=== PATIENT | female | born 1960 | race Caucasian/White ===

== ENCOUNTER 2018-08-25 22:33 | Emergency (ER) | payer OTHER ==
[2018-08-25] MEDS ORDERED: DUONEB 0.5-3 MG/3 ml Neb IH ONE ×2 (23:08→23:12)
--- NOTE | 2018-08-25 23:12 | ERPHSYRPT ---
- History of Present Illness Time Seen by Provider: 08/25/18 23:04 Source: patient Exam Limitations: no limitations Patient Subjective Stated Complaint: pt states she has been feeling short of breath all day and has felt like she cant take a deep breath Triage Nursing Assessment: pt alert and oriented, answers questions approp. pt ambualtoryw ith steady gait noted. respirations nonlabored with lungs cta. pt occasionally taking deep breath and states she doesnt feel like she is getting a deep breath. skin pink warm and slightly moist. heart rate 72 sinus rhythm on monitor Physician History: 57-year-old white female arrives with complaint of shortness of breath symptoms since 3:00 this afternoon she states she feels like she cannot get a deep breath she denies any chest pain no nausea no vomiting no other complaints he has not had any fevers. Past medical history includes arrhythmia, high blood pressure, myocardial infarction, gallbladder disease, bacterial meningitis. Past surgical history includes cardiac catheterization and cholecystectomy, social history is negative. Timing/Duration: today (3:00 today) Activities at Onset: none Possible Cause: no prior episodes Associated Symptoms: constant, No intermittent, No anxiety, No cough, No chest pain/discomfort, No edema, No fever, No insomnia, No loss of appetite, No lightheadedness, No wheezing, No weakness, No ankle swelling, No chills, No hemoptysis, No calf pain, No dizziness, No heaviness, No heart racing, No lightheadedness, No leg swelling, No muscle spasms feet, No muscle spasms hands , No painful breathing, No productive cough, No sweating, No tightness, No tingling face, No tingling hands International travel in last 2 weeks: No Allergies/Adverse Reactions: No Known Drug Allergies Allergy (Unverified 03/19/14 14:52) Home Medications: Lisinopril [Zestril] 20 mg PO HS 11/21/13 [History] Rivaroxaban [Xarelto] 20 mg PO DAILY 11/21/13 [History] Hx Tetanus, Diphtheria Vaccination/Date Given: Yes Hx Influenza Vaccination/Date Given: No Hx Pneumococcal Vaccination/Date Given: No Immunizations Up to Date: Yes - Review of Systems Constitutional: No Fever, No Chills Eyes: No Symptoms Ears, Nose, & Throat: No Symptoms Respiratory: Dyspnea, No Cough, No Wheezing Cardiac: No Chest Pain, No Edema, No Syncope Abdominal/Gastrointestinal: No Abdominal Pain, No Nausea, No Vomiting, No Diarrhea Genitourinary Symptoms: No Dysuria Musculoskeletal: No Back Pain, No Neck Pain Skin: No Rash Neurological: No Dizziness, No Focal Weakness, No Sensory Changes Psychological: No Symptoms Endocrine: No Symptoms All Other Systems: Reviewed and Negative - Past Medical History Pertinent Past Medical History: Yes Neurological History: No Pertinent History ENT History: No Pertinent History Cardiac History: Arrhythmia, Hypertension, Myocardial Infarction ([place]) Respiratory History: No Pertinent History Endocrine Medical History: No Pertinent History Musculoskeletal History: No Pertinent History GI Medical History: Gallbladder Disease History: No Pertinent History Psycho-Social History: No Pertinent History Female Reproductive Disorders: No Pertinent History Other Medical History: MENINGITIS-BACTERIAL - Past Surgical History Past Surgical History: Yes Cardiac: Cardiac Catheterization Gastrointestinal: Cholecystectomy Genitourinary: No Pertinent History Musculoskeletal: No Pertinent History Female Surgical History: No Pertinent History - Social History Smoking Status: Current every day smoker Exposure to second hand smoke: No Drug Use: none Patient Lives Alone: No Significant Family History: no pertinent family hx - Nursing Vital Signs Nursing Vital Signs: Initial Vital Signs Temperature 98.1 F 08/25/18 22:34 Pulse Rate 65 08/25/18 22:34 Respiratory Rate 18 08/25/18 22:34 Blood Pressure 203/118 08/25/18 22:34 O2 Sat by Pulse Oximetry 99 08/25/18 22:34 Pain Scale Pain Intensity 0 - Physical Exam General Appearance: no apparent distress, alert Eye Exam: PERRL/EOMI Neck Exam: normal inspection, supple Cardiovascular/Chest Exam: normal heart sounds, regular rate/rhythm Abdominal/Gastrointestinal Exam: soft, No tenderness, No distention, No mass Extremity Exam: non-tender, normal range of motion, normal inspection, no calf tenderness, no pedal edema Peripheral Pulses Exam: dorsalis-pedis (R): 2+, dorsalis-pedis (L): 2+ Neurologic Exam: alert, oriented x 3, cooperative, fitness centre manager II-XII nml as tested, sensation nml, No motor deficits Skin Exam: normal color, warm, No dry SpO2 Interpretation: normal (99%) SpO2: 99 - Course Nursing assessment & vital signs reviewed: Yes EKG Interpreted by Me: RATE (61 bpm), Sinus Rhythm, NORMAL AXIS, Other (EKG and and 60 normal axis, no acute ST or T wave changes) Ordered Tests: Active Orders 24 hr Category Date Time Status Cigar Sorter STAT Care 08/25/18 23:08 Active EKG-ER Only STAT Care 08/25/18 23:08 Active IV Insertion STAT Care 08/25/18 23:08 Active Pulse Oximetry (ED) STAT Care 08/25/18 23:08 Active CHEST 1 VIEW (PORTABLE) Stat Exams 08/25/18 23:08 Taken CBC W DIFF Stat Lab 08/25/18 23:13 Completed CMP Stat Lab 08/25/18 23:13 Completed D-DIMER QUANTITATION Stat Lab 08/25/18 23:13 Completed NT PRO BNP Stat Lab 08/25/18 23:13 Completed PROTIME WITH INR Stat Lab 08/25/18 23:13 Completed PTT Stat Lab 08/25/18 23:13 Completed TROPONIN Q3H Lab 08/25/18 23:13 Completed TROPONIN Q3H Lab 08/26/18 02:15 Ordered TROPONIN Q3H Lab 08/26/18 05:15 Ordered TROPONIN Q3H Lab 08/26/18 08:15 Ordered TROPONIN Q3H Lab 08/26/18 11:15 Ordered UA W/RFX UR CULTURE Stat Lab 08/25/18 23:42 Completed Urine Triage Profile Stat Lab 08/25/18 23:42 Completed VENOUS BLOOD GAS Stat Lab 08/25/18 23:08 Completed Peak Expiratory Flow Rate ONCE RT 08/25/18 23:18 Active Respiratory Therapy Assessment DAILY RT 08/25/18 23:19 Active Medication Summary Discontinued Medications Generic Name Dose Route Start Last Admin Trade Name Freq PRN Reason Stop Dose Admin Albuterol/Ipratropium 3 ml 08/25/18 23:08 08/25/18 23:13 Duoneb 0.5-3 Mg/3 Ml Neb IH 08/25/18 23:09 3 ml STAT ONE Administration Albuterol/Ipratropium Confirm 08/25/18 23:12 Duoneb 0.5-3 Mg/3 Ml Neb Administered 08/25/18 23:13 Dose 3 ml IH .STK-MED ONE Lab/Rad Data: Laboratory Result Diagrams 08/25/18 23:13 08/25/18 23:13 Laboratory Results 08/25/18 08/25/18 08/25/18 Range/Units 23:42 23:42 23:13 WBC (4.0-10.5) K/mm3 RBC (4.1-5.4) M/mm3 Hgb (12.0-16.0) gm/dl Hct (35-47) % MCV (78-100) fl MCH (26-32) pg MCHC (32-36) g/dl RDW (11.5-14.0) % Plt Count (150-450) K/mm3 MPV (6-9.5) fl Gran % (36.0-66.0) % Eos # (Auto) (0-0.5) Absolute Lymphs (auto) (1.0-4.6) Absolute Monos (auto) (0.0-1.3) Lymphocytes % (24.0-44.0) % Monocytes % (0.0-12.0) % Eosinophils % (0.00-5.0) % Basophils % (0.0-0.4) % Absolute Granulocytes (1.4-6.9) Basophils # (0-0.4) PT (9.95-12.35) SECONDS INR (0.8-3.0) APTT (25.3-37.0) SECONDS D-Dimer (215-500) ng/mL pO2/FiO2 Ratio % VBG pH (7.32-7.42) VBG pCO2 at Pat Temp (42-55) mm/Hg VBG pO2 at Pat Temp (25-40) mm/Hg VBG HCO3 (22-28) meq/L VBG O2 Sat (Moni) (95-100) VBG Base Excess (-2.0-2.0) VBG Hemoglobin VBG Carboxyhemoglobin (0.0-6.9) % T HGB POC Potassium (3.5-5.1) Sodium (137-145) mmol/L Potassium (3.5-5.1) mmol/L Chloride (98-107) mmol/L Carbon Dioxide (22-30) mmol/L Anion Gap (5-15) MEQ/L BUN (7-17) mg/dL Creatinine (0.52-1.04) mg/dL Estimated GFR ML/MIN Glucose (74-106) mg/dL Calcium (8.4-10.2) mg/dL Total Bilirubin (0.2-1.3) mg/dL AST (14-36) U/L ALT (0-35) U/L Alkaline Phosphatase (38-126) U/L Troponin I < 0.012 (0.000-0.034) ng/mL NT-Pro-B Natriuret Pep (0-900) pg/mL Serum Total Protein (6.3-8.2) g/dL Albumin (3.5-5.0) g/dL Urine Color STRAW (YELLOW) Urine Appearance CLEAR (CLEAR) Urine pH 7.0 (5-6) Ur Specific [place] 1.002 (1.005-1.025) Urine Protein NEGATIVE (Negative) Urine Ketones NEGATIVE (NEGATIVE) Urine Blood SMALL (0-5) Minh/ul Urine Nitrite NEGATIVE (NEGATIVE) Urine Bilirubin NEGATIVE (NEGATIVE) Urine Urobilinogen NEGATIVE (0-1) mg/dL Ur Leukocyte Esterase NEGATIVE (NEGATIVE) Urine WBC (Auto) NONE SEEN (0-5) /HPF Urine RBC (Auto) NONE (0-2) /HPF U Epithel Cells (Auto) NONE (FEW) /HPF Urine Bacteria (Auto) NONE SEEN (NEGATIVE) /HPF Urine Culture Reflexed NO (NO) Urine Glucose NEGATIVE (NEGATIVE) mg/dL Urine Opiates Level NEGATIVE (NEGATIVE) Ur Methadone NEGATIVE (NEGATIVE) Urine Barbiturates NEGATIVE (NEGATIVE) Ur Phencyclidine (PCP) NEGATIVE (NEGATIVE) Urine Amphetamine NEGATIVE (NEGATIVE) U Benzodiazepine Level NEGATIVE (NEGATIVE) Urine Cocaine NEGATIVE (NEGATIVE) Urine Marijuana (THC) POSITIVE (NEGATIVE) 08/25/18 08/25/18 08/25/18 Range/Units 23:13 23:13 23:13 WBC 7.8 (4.0-10.5) K/mm3 RBC 4.73 (4.1-5.4) M/mm3 Hgb 14.7 (12.0-16.0) gm/dl Hct 42.1 (35-47) % MCV 89.0 (78-100) fl MCH 31.1 (26-32) pg MCHC 34.9 (32-36) g/dl RDW 13.1 (11.5-14.0) % Plt Count 189 (150-450) K/mm3 MPV 10.0 H (6-9.5) fl Gran % 46.4 (36.0-66.0) % Eos # (Auto) 0.16 (0-0.5) Absolute Lymphs (auto) 3.43 (1.0-4.6) Absolute Monos (auto) 0.56 (0.0-1.3) Lymphocytes % 44.0 (24.0-44.0) % Monocytes % 7.2 (0.0-12.0) % Eosinophils % 2.1 (0.00-5.0) % Basophils % 0.3 (0.0-0.4) % Absolute Granulocytes 3.63 (1.4-6.9) Basophils # 0.02 (0-0.4) PT 13.4 H (9.95-12.35) SECONDS INR 1.15 (0.8-3.0) APTT 36.5 (25.3-37.0) SECONDS D-Dimer < 215 L (215-500) ng/mL pO2/FiO2 Ratio % VBG pH (7.32-7.42) VBG pCO2 at Pat Temp (42-55) mm/Hg VBG pO2 at Pat Temp (25-40) mm/Hg VBG HCO3 (22-28) meq/L VBG O2 Sat (Moni) (95-100) VBG Base Excess (-2.0-2.0) VBG Hemoglobin VBG Carboxyhemoglobin (0.0-6.9) % T HGB POC Potassium (3.5-5.1) Sodium 142 (137-145) mmol/L Potassium 4.0 (3.5-5.1) mmol/L Chloride 103 (98-107) mmol/L Carbon Dioxide 26 (22-30) mmol/L Anion Gap 16.9 H (5-15) MEQ/L BUN 9 (7-17) mg/dL Creatinine 0.54 (0.52-1.04) mg/dL Estimated GFR > 60.0 ML/MIN Glucose 103 (74-106) mg/dL Calcium 9.9 (8.4-10.2) mg/dL Total Bilirubin 0.40 (0.2-1.3) mg/dL AST 27 (14-36) U/L ALT 15 (0-35) U/L Alkaline Phosphatase 88 (38-126) U/L Troponin I (0.000-0.034) ng/mL NT-Pro-B Natriuret Pep 154 (0-900) pg/mL Serum Total Protein 8.6 H (6.3-8.2) g/dL Albumin 5.0 (3.5-5.0) g/dL Urine Color (YELLOW) Urine Appearance (CLEAR) Urine pH (5-6) Ur Specific [place] (1.005-1.025) Urine Protein (Negative) Urine Ketones (NEGATIVE) Urine Blood (0-5) Minh/ul Urine Nitrite (NEGATIVE) Urine Bilirubin (NEGATIVE) Urine Urobilinogen (0-1) mg/dL Ur Leukocyte Esterase (NEGATIVE) Urine WBC (Auto) (0-5) /HPF Urine RBC (Auto) (0-2) /HPF U Epithel Cells (Auto) (FEW) /HPF Urine Bacteria (Auto) (NEGATIVE) /HPF Urine Culture Reflexed (NO) Urine Glucose (NEGATIVE) mg/dL Urine Opiates Level (NEGATIVE) Ur Methadone (NEGATIVE) Urine Barbiturates (NEGATIVE) Ur Phencyclidine (PCP) (NEGATIVE) Urine Amphetamine (NEGATIVE) U Benzodiazepine Level (NEGATIVE) Urine Cocaine (NEGATIVE) Urine Marijuana (THC) (NEGATIVE) 08/25/18 Range/Units 23:08 WBC (4.0-10.5) K/mm3 RBC (4.1-5.4) M/mm3 Hgb (12.0-16.0) gm/dl Hct (35-47) % MCV (78-100) fl MCH (26-32) pg MCHC (32-36) g/dl RDW (11.5-14.0) % Plt Count (150-450) K/mm3 MPV (6-9.5) fl Gran % (36.0-66.0) % Eos # (Auto) (0-0.5) Absolute Lymphs (auto) (1.0-4.6) Absolute Monos (auto) (0.0-1.3) Lymphocytes % (24.0-44.0) % Monocytes % (0.0-12.0) % Eosinophils % (0.00-5.0) % Basophils % (0.0-0.4) % Absolute Granulocytes (1.4-6.9) Basophils # (0-0.4) PT (9.95-12.35) SECONDS INR (0.8-3.0) APTT (25.3-37.0) SECONDS D-Dimer (215-500) ng/mL pO2/FiO2 Ratio 28.0 % VBG pH 7.39 (7.32-7.42) VBG pCO2 at Pat Temp 46 (42-55) mm/Hg VBG pO2 at Pat Temp 32 (25-40) mm/Hg VBG HCO3 27.8 (22-28) meq/L VBG O2 Sat (Moni) 63.6 L (95-100) VBG Base Excess 2.1 H (-2.0-2.0) VBG Hemoglobin 14.8 VBG Carboxyhemoglobin 4.6 (0.0-6.9) % T HGB POC Potassium 3.8 (3.5-5.1) Sodium (137-145) mmol/L Potassium (3.5-5.1) mmol/L Chloride (98-107) mmol/L Carbon Dioxide (22-30) mmol/L Anion Gap (5-15) MEQ/L BUN (7-17) mg/dL Creatinine (0.52-1.04) mg/dL Estimated GFR ML/MIN Glucose (74-106) mg/dL Calcium (8.4-10.2) mg/dL Total Bilirubin (0.2-1.3) mg/dL AST (14-36) U/L ALT (0-35) U/L Alkaline Phosphatase (38-126) U/L Troponin I (0.000-0.034) ng/mL NT-Pro-B Natriuret Pep (0-900) pg/mL Serum Total Protein (6.3-8.2) g/dL Albumin (3.5-5.0) g/dL Urine Color (YELLOW) Urine Appearance (CLEAR) Urine pH (5-6) Ur Specific [place] (1.005-1.025) Urine Protein (Negative) Urine Ketones (NEGATIVE) Urine Blood (0-5) Minh/ul Urine Nitrite (NEGATIVE) Urine Bilirubin (NEGATIVE) Urine Urobilinogen (0-1) mg/dL Ur Leukocyte Esterase (NEGATIVE) Urine WBC (Auto) (0-5) /HPF Urine RBC (Auto) (0-2) /HPF U Epithel Cells (Auto) (FEW) /HPF Urine Bacteria (Auto) (NEGATIVE) /HPF Urine Culture Reflexed (NO) Urine Glucose (NEGATIVE) mg/dL Urine Opiates Level (NEGATIVE) Ur Methadone (NEGATIVE) Urine Barbiturates (NEGATIVE) Ur Phencyclidine (PCP) (NEGATIVE) Urine Amphetamine (NEGATIVE) U Benzodiazepine Level (NEGATIVE) Urine Cocaine (NEGATIVE) Urine Marijuana (THC) (NEGATIVE) - Progress Progress: improved Air Movement: fair Progress Note: 08/26/18 00:37 Patient is feeling better after a DuoNeb treatment. Patient and her stated [place] materials in the air today. Will plan on sending patient home with albuterol inhaler. And prednisone. Patient's blood pressure was elevated today. It is improved but still somewhat high however this time for the patient to take her lisinopril she states she prefers to do this at home. - Departure Departure Disposition: Home Clinical Impression: Shortness of breath, Bronchospasm Condition: Fair Critical Care Time: No Referrals: KRISTINE OMALLEY MD [COURTESY STAFF] - Additional Instructions: Return home. Prednisone as prescribed. Albuterol inhaler 2 puffs every 4-6 hours as needed. Be sure to take her blood pressure medications tonight. Followup with your family (list) Return for acute distress or for severe symptoms or for any problems. Prescriptions: Prednisone 20 mg [Deltasone 20 mg] 2 tab PO DAILY #10 tablet
[2018-08-25 23:17] LABS: BASOPHIL % 0.3 % (0.0-0.4); Basophil (Absolute #) 0.02 (0-0.4); Eosinophil % 2.1 % (0.00-5.0); Eosinophil (Absolute #) 0.16 (0-0.5); Granulocyte Absolute (ANC) 3.63 (1.4-6.9); Granulocytes % 46.4 % (36.0-66.0); Hematocrit 42.1 % (35-47); Hemoglobin 14.7 gm/dl (12.0-16.0); Lymphocyte (Absolute #) 3.43 (1.0-4.6); Mean Corpuscular Hemoglobin 31.1 pg (26-32); Mean Corpuscular Hgb Concent. 34.9 g/dl (32-36); Monocyte (Absolute #) 0.56 (0.0-1.3); Monocytes % 7.2 % (0.0-12.0); Platelet Count 189 K/mm3 (150-450); Red Blood Count 4.73 M/mm3 (4.1-5.4); Red Cell Distribution Width 13.1 % (11.5-14.0); White Blood Count 7.8 K/mm3 (4.0-10.5)
[2018-08-25 23:24] LABS: INR 1.15 (0.8-3.0); PROTIME 13.4 SECONDS (9.95-12.35)
[2018-08-25 23:26] LABS: PTT 36.5 SECONDS (25.3-37.0)
[2018-08-25 23:31] LABS: ALKALINE PHOSPHATASE 88 U/L (38-126); ANION GAP 16.9 MEQ/L (5-15); BLOOD UREA NITROGEN 9 mg/dL (7-17); CHLORIDE 103 mmol/L (98-107); Calcium 9.9 mg/dL (8.4-10.2); Carbon Dioxide 26 mmol/L (22-30); Creatinine 1 0.54 mg/dL (0.52-1.04); Glucose 103 mg/dL (74-106); NT PRO BNP 154 pg/mL (0-900); SGOT/AST 27 U/L (14-36); SGPT/ALT 15 U/L (0-35); SODIUM 142 mmol/L (137-145); Total Protein 8.6 g/dL (6.3-8.2)
[2018-08-25 23:31] LABS: VBG BASE EXCESS 2.1 (-2.0-2.0); VBG CARBOXYHEMOGLOBIN 4.6 % T HGB (0.0-6.9); VBG HCO3- 27.8 meq/L (22-28); VBG HEMOGLOBIN 14.8; VBG O2 SATURATION 63.6 (95-100); VBG POTASSIUM 3.8 (3.5-5.1); VBG pH 7.39 (7.32-7.42)
[2018-08-25 23:42] LABS: D-DIMER QUANTITATION < 215 ng/mL (215-500)
[2018-08-25 23:48] LABS: Appearance CLEAR (CLEAR); Bilirubin NEGATIVE (NEGATIVE); Blood SMALL Ery/ul (0-5); Glucose NEGATIVE (NEGATIVE); Ketones NEGATIVE (NEGATIVE); Leukocyte Esterase NEGATIVE (NEGATIVE); Nitrite NEGATIVE (NEGATIVE); Protein,Urine Dip NEGATIVE (Negative); Specific Gravity 1.002 (1.005-1.025); Urobilinogen NEGATIVE mg/dL (0-1)
[2018-08-25 23:52] LABS: WBC NONE SEEN /HPF (0-5)
[2018-08-25 23:53] LABS: Bacteria NONE SEEN /HPF (NEGATIVE)
[2018-08-26 00:01] LABS: Amphetamine,Urine NEGATIVE (NEGATIVE); Barbiturate,Urine NEGATIVE (NEGATIVE); Benzodiazepine,Urine NEGATIVE (NEGATIVE); Cocaine,Urine NEGATIVE (NEGATIVE); Methadone,Urine NEGATIVE (NEGATIVE); Opiate,Urine NEGATIVE (NEGATIVE); PCP,Urine NEGATIVE (NEGATIVE); THC,Urine POSITIVE (NEGATIVE)
[2018-08-26] MEDS ORDERED: PROVENTIL COMMON CANISTER IH PRN (00:42)
[2018-08-26] MEDS ORDERED: Ventolin Hfa MDI IH ONE ×2 (00:54→01:05)
[2018-08-26 00:55] VITALS: BP 150/100; PULSE 50; O2SAT 97
--- NOTE | 2018-08-26 09:08 | XRAY ---
Indication: Short of breath. Comparison: March 19, 2014. Portable chest again demonstrate normal heart and lungs with incidental right lung calcified granuloma. Bony thorax intact again with bilateral shoulder degenerative changes. No new/acute findings.
== END 2018-08-26 01:13 | disposition home or self-care (01) ==
LOC: ED 22:33
DX: R06.02 Shortness of breath (principal); J98.01 Acute bronchospasm; I10 Essential (primary) hypertension; Z79.899 Other long term (current) drug therapy; Z79.01 Long term (current) use of anticoagulants
CPT/HCPCS: 36000; 36415; 71045; 80053; 80307; 81001; 82805; 83880; 84484; 85025; 85379; 85610; 85730; 93005; 93041; 94150; 94640; 99284; A9270-GY

== ENCOUNTER 2024-03-15 14:02 | Emergency (ER) | payer OTHER ==
[2024-03-15 14:28] VITALS: PULSE 65; RESP 18; TEMP 97
[2024-03-15 14:30] VITALS: O2SAT 96
--- NOTE | 2024-03-15 14:30 | ERPHSYRPT ---
- History of Present Illness Time Seen by Provider: 03/15/24 14:25 Historian: patient Exam Limitations: no limitations Patient Subjective Stated Complaint: PT SENT FROM CLINIC FOR ABD PAIN SINCE YESTERDAY, CO SOME NAUSEA, NO VOMITING OR FEVER Triage Nursing Assessment: PT ALERT, WALKED IN, RESTLESS IN BED, SKIN W/D/P. ABD TENDER TO TOUCH, BS X4, NO EDEMA NOTED Physician History: 63 years old female with history of hypertension, hyperlipidemia, atrial fibrillation on Xarelto presented in the ER with complains of left sided abdominal/flank pain for the last 4 days with progressive worsening since yesterday. Patient rates 10/10 intensity sharp nature pain, aggravated with movements and palpation is unable to find a comfortable position. Denies any urinary complaints. Does have associated nausea but no vomiting. Denies any history of constipation or diarrhea. No fever or chills reported. Allergies/Adverse Reactions: No Known Drug Allergies Allergy (Verified 03/15/24 14:19) Home Medications: Lisinopril [Zestril] 20 mg PO HS 11/21/13 [History] Rivaroxaban [Xarelto] 20 mg PO DAILY 11/21/13 [History] Rosuvastatin Calcium 5 mg PO DAILY 03/15/24 [History] Hx Tetanus, Diphtheria Vaccination/Date Given: Yes Hx Influenza Vaccination/Date Given: No Hx Pneumococcal Vaccination/Date Given: No Immunizations Up to Date: Yes Travel Risk - International Travel Have you traveled outside of the country in past 3 weeks: No - Emerging Infectious Disease Are you exhibiting symptoms associated with any current EIDs: No - Review of Systems Constitutional: No Symptoms Ears, Nose, & Throat: No Symptoms Respiratory: No Symptoms Cardiac: No Symptoms Abdominal/Gastrointestinal: Abdominal Pain, Nausea Genitourinary Symptoms: No Symptoms Musculoskeletal: No Symptoms Skin: No Symptoms Neurological: No Symptoms Psychological: No Symptoms Endocrine: No Symptoms Hematologic/Lymphatic: Easy Bleeding Immunological/Allergic: No Symptoms - Past Medical History Pertinent Past Medical History: Yes Neurological History: No Pertinent History ENT History: No Pertinent History Cardiac History: Arrhythmia, Coronary Artery Disease, High Cholesterol, Hypertension, Myocardial Infarction ([place]) Respiratory History: No Pertinent History Endocrine Medical History: No Pertinent History Musculoskeletal History: Osteoarthritis GI Medical History: Gallbladder Disease History: No Pertinent History Psycho-Social History: No Pertinent History Female Reproductive Disorders: No Pertinent History Other Medical History: STATES HAD X-RAYS IN [place] BUT DOESN'T KNOW RESULTS. - Past Surgical History Past Surgical History: Yes Cardiac: Cardiac Catheterization Gastrointestinal: Cholecystectomy Genitourinary: No Pertinent History Musculoskeletal: No Pertinent History Female Surgical History: No Pertinent History Significant Family History: no pertinent family hx - Social History Smoking Status: Former smoker Exposure to second hand smoke: No Drug Use: none Patient Lives Alone: No - Social Determinants of Health Will the patient participate in the screening: Declined to provide - Nursing Vital Signs Nursing Vital Signs: Initial Vital Signs Temperature 97.0 F 03/15/24 14:28 Pulse Rate 65 03/15/24 14:28 Respiratory Rate 18 03/15/24 14:28 Blood Pressure 170/80 03/15/24 14:28 O2 Sat by Pulse Oximetry 98 03/15/24 14:28 Pain Scale Pain Intensity 9 - Physical Exam General Appearance: no apparent distress Eye Exam: PERRL/EOMI Ears, Nose, Throat Exam: normal ENT inspection Neck Exam: normal inspection, full range of motion Respiratory Exam: normal breath sounds, lungs clear Cardiovascular Exam: regular rate/rhythm, normal heart sounds Gastrointestinal/Abdomen Exam: soft, normal bowel sounds, tenderness (Left flank/left lower quadrant/periumbilical area tenderness with guarding but no rebound tenderness.) Extremity Exam: normal inspection, normal range of motion Neurologic Exam: alert, oriented x 3, cooperative Skin Exam: normal color SpO2 Interpretation: normal SpO2: 96 O2 Delivery: Room Air Ordered Tests: Active Orders 24 hr Category Date Time Status IV Insertion STAT Care 03/15/24 14:27 Active NPO (ED) STAT Care 03/15/24 14:27 Active ABDOMEN AND PELVIS W CONTRAST [CT] Stat Exams 03/15/24 14:27 Completed CBC W DIFF Stat Lab 03/15/24 14:31 Completed CMP Stat Lab 03/15/24 14:31 Completed CULTURE,URINE Stat Lab 03/15/24 14:31 Received LIPASE Stat Lab 03/15/24 14:31 Completed Lactic Acid Stat Lab 03/15/24 14:48 Completed UA W/RFX UR CULTURE Stat Lab 03/15/24 14:31 Completed Medication Summary Discontinued Medications Generic Name Dose Route Start Last Admin Trade Name Freq PRN Reason Stop Dose Admin Sodium Chloride 1,000 mls @ 999 mls/hr 03/15/24 14:27 03/15/24 15:42 Sodium Chloride 0.9% 1000 Ml IV 03/15/24 15:27 Infused .Q1H1M STA Infusion Sodium Chloride Confirm 03/15/24 14:32 Sodium Chloride 0.9% 1000 Ml Administered 03/15/24 14:33 Dose 1,000 mls @ ud .ROUTE .STK-MED ONE Levofloxacin 500 mg 03/15/24 16:59 Levofloxacin 500 Mg Tablet PO 03/15/24 17:00 STAT ONE Metronidazole 500 mg 03/15/24 16:59 Metronidazole 500 Mg Tablet PO 03/15/24 17:00 STAT ONE Morphine Sulfate 4 mg 03/15/24 14:27 03/15/24 14:38 Morphine Sulfate 4 Mg/Ml Injection IV 03/15/24 14:28 4 mg STAT ONE Administration Morphine Sulfate Confirm 03/15/24 14:32 Morphine Sulfate 4 Mg/Ml Injection Administered 03/15/24 14:33 Dose 4 mg .ROUTE .STK-MED ONE Ondansetron HCl 4 mg 03/15/24 14:27 03/15/24 14:39 Ondansetron Hcl 4 Mg/2 Ml Vial IV 03/15/24 14:28 4 mg STAT ONE Administration Ondansetron HCl Confirm 03/15/24 14:32 Ondansetron Hcl 4 Mg/2 Ml Vial Administered 03/15/24 14:33 Dose 4 mg .ROUTE .STK-MED ONE Pantoprazole Sodium 40 mg 03/15/24 15:11 03/15/24 15:14 Pantoprazole 40 Mg Vial IV 03/15/24 15:12 40 mg STAT ONE Administration Pantoprazole Sodium Confirm 03/15/24 15:12 Pantoprazole 40 Mg Vial Administered 03/15/24 15:13 Dose 40 mg IV .STK-MED ONE Lab/Rad Data: Laboratory Result Diagrams 03/15/24 14:31 03/15/24 14:31 Laboratory Results 03/15/24 03/15/24 03/15/24 Range/Units 14:48 14:31 14:31 WBC 15.9 H (3.98-10.04) x10^3/uL RBC 4.18 (3.93-5.22) x10^6/uL Hgb 12.9 (11.2-15.7) g/dL Hct 36.2 (34.1-44.9) % MCV 86.6 (79.4-94.8) fL MCH 30.9 (25.6-32.2) pg MCHC 35.6 H (32.2-35.5) g/dL RDW 12.0 (11.7-14.4) % Plt Count 221 (182-369) x10^3/uL MPV 9.6 (9.4-12.3) fL Gran % 79.5 H (34.0-71.1) % Immature Gran % (Auto) 0.3 (0.001-0.429) % Nucleat RBC Rel Count 0.0 (0.00-0.2) % Eos # (Auto) 0.02 L (0.04-0.36) x10^3/uL Immature Gran # (Auto) 0.05 H (0.001-0.031) x10^3u/L Absolute Lymphs (auto) 2.29 (1.18-3.74) x10^3/uL Absolute Monos (auto) 0.85 (0.24-0.86) x10^3/uL Absolute Nucleated RBC 0.00 (0.00-0.012) x10^3u/L Lymphocytes % 14.4 L (19.3-51.7) % Monocytes % 5.4 (4.7-12.5) % Eosinophils % 0.1 L (0.7-5.8) % Basophils % 0.3 (0.1-1.2) % Absolute Granulocytes 12.62 H (1.56-6.13) x10^3/uL Basophils # 0.05 (0.01-0.08) x10^3/uL Sodium 137 (135-145) mmol/L Potassium 4.1 (3.5-5.1) mmol/L Chloride 106 (98-107) mmol/L Carbon Dioxide 22 (22-30) mmol/L Anion Gap 14.1 (5-15) MEQ/L BUN 16 (7-17) mg/dL Creatinine 0.61 (0.52-1.04) mg/dL Estimated GFR 100.4 ML/MIN Glucose 111 H (74-106) mg/dL Lactic Acid 0.9 (0.4-2.0) Calcium 9.5 (8.4-10.2) mg/dL Total Bilirubin 1.20 (0.2-1.3) mg/dL AST 32 (14-36) U/L ALT 26 (0-35) U/L Alkaline Phosphatase 70 (38-126) U/L Serum Total Protein 7.9 (6.3-8.2) g/dL Albumin 5.0 (3.5-5.0) g/dL Lipase 29 (23-300) U/L Urine Color (Yellow) Urine Appearance (Clear) Urine pH (4.6-8.0) Ur Specific [place] (1.005-1.030) Urine Protein (Negative) Urine Glucose (UA) (Negative) mg/dL Urine Ketones (Negative) Urine Blood (Negative) Urine Nitrite (Negative) Urine Bilirubin (Negative) Urine Urobilinogen (0.2) mg/dL Ur Leukocyte Esterase (Negative) U Hyaline Cast (Auto) (0-2) /LPF Urine Microscopic RBC (0-5) /HPF Urine Microscopic WBC (0-5) /HPF Ur Epithelial Cells (None Seen) /HPF Urine Bacteria (None Seen) /HPF Urine Culture Reflexed (NO) 03/15/24 Range/Units 14:31 WBC (3.98-10.04) x10^3/uL RBC (3.93-5.22) x10^6/uL Hgb (11.2-15.7) g/dL Hct (34.1-44.9) % MCV (79.4-94.8) fL MCH (25.6-32.2) pg MCHC (32.2-35.5) g/dL RDW (11.7-14.4) % Plt Count (182-369) x10^3/uL MPV (9.4-12.3) fL Gran % (34.0-71.1) % Immature Gran % (Auto) (0.001-0.429) % Nucleat RBC Rel Count (0.00-0.2) % Eos # (Auto) (0.04-0.36) x10^3/uL Immature Gran # (Auto) (0.001-0.031) x10^3u/L Absolute Lymphs (auto) (1.18-3.74) x10^3/uL Absolute Monos (auto) (0.24-0.86) x10^3/uL Absolute Nucleated RBC (0.00-0.012) x10^3u/L Lymphocytes % (19.3-51.7) % Monocytes % (4.7-12.5) % Eosinophils % (0.7-5.8) % Basophils % (0.1-1.2) % Absolute Granulocytes (1.56-6.13) x10^3/uL Basophils # (0.01-0.08) x10^3/uL Sodium (135-145) mmol/L Potassium (3.5-5.1) mmol/L Chloride (98-107) mmol/L Carbon Dioxide (22-30) mmol/L Anion Gap (5-15) MEQ/L BUN (7-17) mg/dL Creatinine (0.52-1.04) mg/dL Estimated GFR ML/MIN Glucose (74-106) mg/dL Lactic Acid (0.4-2.0) Calcium (8.4-10.2) mg/dL Total Bilirubin (0.2-1.3) mg/dL AST (14-36) U/L ALT (0-35) U/L Alkaline Phosphatase (38-126) U/L Serum Total Protein (6.3-8.2) g/dL Albumin (3.5-5.0) g/dL Lipase (23-300) U/L Urine Color Yellow (Yellow) Urine Appearance Cloudy A (Clear) Urine pH 6.0 (4.6-8.0) Ur Specific [place] 1.020 (1.005-1.030) Urine Protein Negative (Negative) Urine Glucose (UA) Negative (Negative) mg/dL Urine Ketones Negative (Negative) Urine Blood Trace (Negative) Urine Nitrite Negative (Negative) Urine Bilirubin Negative (Negative) Urine Urobilinogen 1.0 A (0.2) mg/dL Ur Leukocyte Esterase Moderate A (Negative) U Hyaline Cast (Auto) 3-5 A (0-2) /LPF Urine Microscopic RBC 3-5 (0-5) /HPF Urine Microscopic WBC 21-50 A (0-5) /HPF Ur Epithelial Cells Many A (None Seen) /HPF Urine Bacteria Moderate A (None Seen) /HPF Urine Culture Reflexed YES (NO) - Progress Progress: improved, re-examined Progress Note: 03/15/24 17:02 63-year-old is evaluated in the ER for left sided abdominal pain with progressive worsening for the last few days. Patient has tenderness on initial exam with some guarding. She is given fluids and symptomatic treatment, on reevaluation she is feeling much better. No peritoneal signs on repeated to eval. Workup showed white count of 15, chemistries fairly unremarkable with normal lactate. She does have UTI. CT abdomen pelvis with contrast showed descending diverticulitis with no perforation/abscess. Discussed with patient's the results of workup and offered observation admission with IV antibiotics but she would prefer to go home. She is afebrile. She is feeling much improved on reeval. I think it would be reasonable and I would start her on Levaquin and Flagyl to go home which would also cover for UTI. I will give her few pain medications to go home as well. Discussed signs symptoms of worsening needing return to ER which she seems understanding. Stable for discharge. Counseled pt/family regarding: lab results, diagnosis, need for follow-up, rad results Medical Desision Making - Independent Historian Additional History obtained from: Spouse - Diagnostic Testing Diagnostic test were ordered, analyzed, and reviewed by me: Yes Radiological Interpretation: Reviewed by me, Teleradiologist Report - Risk of complications The pt has a mod risk of morbidity or mortality based on: Need for prescription drug management - Departure Departure Disposition: Home Clinical Impression: Acute diverticulitis of intestine, Acute UTI (urinary tract infection) Condition: Stable Critical Care Time: No Referrals: SAMANTHA BENSON MD [Primary Care Provider] - Follow up with PCP 1 day Instructions: Diverticulitis, Diverticulitis - Discharge instructions Additional Instructions: Take pain medications as needed. Take soft diet. Follow-up with primary care for reevaluation. Return to ER for worsening pain, intractable diarrhea/vomiting or if having blood in the stool, fever chills etc. Prescriptions: Hydrocodone/Acetaminophen [Hydrocodone-Acetamin 5-325 mg] 1 tab PO Q6HPRN PRN 3 Days #10 tablet MDD 4 PRN Reason: Pain Metronidazole 500 mg [Flagyl 500 MG] 500 mg PO TID 10 Days #30 tablet Levofloxacin [Levaquin 500 MG Tablet] 500 mg PO DAILY 10 Days #10 tablet
[2024-03-15] MEDS ORDERED: MORPHINE SULFATE 4 MG INJ ONE (14:32)
[2024-03-15] MEDS ORDERED: Sodium Chloride 0.9% 1000 ML 1,000 ML ONE (14:32)
[2024-03-15] MEDS ORDERED: Zofran 4 MG/2 ML VIAL ONE (14:32)
[2024-03-15 14:37] LABS: Absolute Neutrophil Ct (ANC) 12.62 x10^3/uL (1.56-6.13); BASOPHIL % 0.3 % (0.1-1.2); Basophil (Absolute #) 0.05 x10^3/uL (0.01-0.08); Eosinophil % 0.1 % (0.7-5.8); Eosinophil (Absolute #) 0.02 x10^3/uL (0.04-0.36); Hematocrit 36.2 % (34.1-44.9); Hemoglobin 12.9 g/dL (11.2-15.7); IMMATURE GRAN # 0.05 x10^3u/L (0.001-0.031); IMMATURE GRAN % 0.3 % (0.001-0.429); Lymphocyte (Absolute #) 2.29 x10^3/uL (1.18-3.74); Lymphocytes % 14.4 % (19.3-51.7); Mean Cell Volume 86.6 fL (79.4-94.8); Mean Corpuscular Hemoglobin 30.9 pg (25.6-32.2); Mean Corpuscular Hgb Concent. 35.6 g/dL (32.2-35.5); Mean Platelet Volume 9.6 fL (9.4-12.3); Monocyte (Absolute #) 0.85 x10^3/uL (0.24-0.86); Monocytes % 5.4 % (4.7-12.5); Neutrophil % 79.5 % (34.0-71.1); Platelet Count 221 x10^3/uL (182-369); Red Blood Count 4.18 x10^6/uL (3.93-5.22); White Blood Count 15.9 x10^3/uL (3.98-10.04)
[2024-03-15] MEDS: Sodium Chloride 0.9% 1000 ML 1,000 ML IV STA (14:38)
[2024-03-15] MEDS: MORPHINE SULFATE 4 MG INJ IV ONE (14:38)
[2024-03-15] MEDS: Zofran 4 MG/2 ML VIAL IV ONE (14:39)
[2024-03-15 14:52] LABS: ANION GAP 14.1 MEQ/L (5-15); Appearance Cloudy (Clear); BILIRUBIN,TOTAL 1.2 mg/dL (0.2-1.3); Bacteria Moderate /HPF (None Seen); Bilirubin Negative (Negative); Blood Trace (Negative); Calcium 9.5 mg/dL (8.4-10.2); Creatinine 1 0.61 mg/dL (0.52-1.04); EST GLOMERULAR FILTRATION RATE 100.4 ML/MIN; Epithelial Cells Many /HPF (None Seen); Glucose, Urine Negative (Negative); Ketones Negative (Negative); Leukocyte Esterase Moderate (Negative); Nitrite Negative (Negative); Potassium 4.1 mmol/L (3.5-5.1); Protein,Urine Dip Negative (Negative); Total Protein 7.9 g/dL (6.3-8.2); WBC 21-50 /HPF (0-5)
[2024-03-15] MEDS ORDERED: PROTONIX 40 MG IV IV ONE (15:12)
[2024-03-15] MEDS: PROTONIX 40 MG IV IV ONE (15:14)
[2024-03-15 16:09] VITALS: BP 105/57
--- NOTE | 2024-03-15 16:34 | XRAY ---
CLINICAL HISTORY: left side pain COMPARISON: None available. TECHNIQUE: CT of the abdomen and pelvis was performed with contrast, with the following protocol: axial images with, and reconstructed coronal and sagittal images. 80 cc of isovue 370 was administered intravenously. One of the following dose reduction techniques was utilized for this exam: Automated exposure control, adjustment of the mA and/or kV according to patient size, and use of iterative reconstruction. FINDINGS: Bowel: Evidence of the sigmoid and descending colon diverticula with one of them in the proximal descending colon seen prominent surrounded by stranding of fat planes and thickening of the peritoneal as well as the fascial reflections. Prominent related mesenteric vessels are noted. No evidence of related fluid collection. No evidence of bowel obstruction. No evidence of free peritoneal air. The second part of the duodenum medial side diverticulum is noted with no related complications. The distal second part of the duodenum also shows a small fat-containing lesion measuring about 10 mm likely representing a small duodenal lipoma. No signs of acute appendicitis. Abdomen: Liver: Normal in size, shape, and density. It shows a segment VIII hepatic focal lesion that is seen as hypodense, nonenhancing measuring about 14 mm. Hepatic vasculature and biliary ducts are unremarkable. Gallbladder and Biliary System: The gallbladder was not visualized likely surgically removed with cholecystectomy clips seen. Dilated proximal common hepatic/common bile duct reaching a diameter of 13 mm with distal smooth tapering likely postcholecystectomy changes. Pancreas: Pancreatic head, body, and tail are visualized and appear normal in size and density. No pancreatic masses or calcifications were noted. The pancreatic duct is not dilated. Spleen: Normal in size, shape, and density. No splenic lesions or masses were identified. Kidneys and Adrenal Glands: Both kidneys are normal in size, shape, and position. Cortical thickness is within normal limits. No renal calculi or hydronephrosis. Adrenal glands are unremarkable with no evidence of masses or hyperplasia. Pelvis: Urinary Bladder: Normal in contour and wall thickness. No intraluminal lesions were identified. Uterus: Normal in size and contour. It shows a small calcified posterior wall lesion likely a fibroid Ovaries: Not well visualized but no gross abnormalities were noted. Vagina: Normal in contour and wall thickness. Peritoneal and Retroperitoneal Structures: No free fluid or abnormal fluid collections were identified within the abdomen or pelvis. No lymphadenopathy was noted. Bones and Soft Tissues: Spine degenerative changes are seen with the narrowing of L5-S1 disc space. Pelvic bones and soft tissues are unremarkable. No fractures or abnormal masses were identified. IMPRESSION: 1. Features suggestive of acute descending colonic diverticulitis with no related localized fluid collection or signs of perforation as described. 2. Second part of duodenum diverticulum. 3. A small second part of the duodenum distal fat-containing lesion is likely a lipoma. 4. Dilated common hepatic/common bile duct with distal smooth tapering likely post cholecystectomy changes. 5. Segment VIII hepatic focal lesion likely cystic for sonographic correlation. [facility] ER was called at [phone] at 03:28 PM LEAD PRINCIPAL TECHNICAL ARCHITECT, 03/15/2024, and Nurse Gisela was informed regarding the presence of significant medical findings in the reports Electronically Signed by: Abdi Ashton MD. (03/15/2024 16:30:53 EST)
[2024-03-15] MEDS ORDERED: Levofloxacin 500 MG Tablet ONE (17:03)
[2024-03-15] MEDS ORDERED: Flagyl 500 MG ONE (17:03)
[2024-03-15] MEDS: Levofloxacin 500 MG Tablet PO ONE (17:04)
[2024-03-15] MEDS: Flagyl 500 MG PO ONE (17:04)
== END 2024-03-15 17:30 | disposition home or self-care (01) ==
LOC: ED 14:02
DX: N39.0 Urinary tract infection, site not specified (principal); K57.92 Diverticulitis of intestine, part unspecified, without perforation or abscess without bleeding; R10.32 Left lower quadrant pain; R11.0 Nausea; I10 Essential (primary) hypertension; E78.5 Hyperlipidemia, unspecified; I48.91 Unspecified atrial fibrillation; Z79.01 Long term (current) use of anticoagulants
CPT/HCPCS: 36415; 74177; 80053; 81001; 83605; 83690; 85025; 87086; 96360; 96374; 96375; 99284; J2270; J2405; A9270-GY